=== PATIENT | male | born 1995 | race African-American/Black ===

== ENCOUNTER 2016-12-06 18:06 | Emergency (ER) | payer OTHER ==
[~2016-12-06] VITALS: Ht 175.3 cm; Wt 63.8 kg
[2016-12-06 18:14] VITALS: TEMP 36.9; Ht 175.3 cm; Wt 63.8 kg
[2016-12-06] MEDS ORDERED: KETOROLAC TROMETHAMINE 30 MG/ML VIAL IV STA (18:39)
[2016-12-06] MEDS ORDERED: SODIUM CHLORIDE 0.9% 1000ML 1,000 ML IV ONE (18:39)
[2016-12-06] MEDS ORDERED: ONDANSETRON INJ 2 MG/ML 2 ML VIAL IV STA (18:39)
[2016-12-06] MEDS ORDERED: SODIUM CHLORIDE 0.9% 1000ML 1,000 ML IV STA (18:39)
--- NOTE | 2016-12-06 18:41 | EMERGENCY ROOM VISIT NOTE ---
History Report prepared by Bernardino: Aileen Bingham Under the Supervision of: Dr. David Jamil M.D. First contact with patient: 18:25 Chief Complaint: VOMITING Stated Complaint: VOMITNG,ABD PAIN,TIREDNESS History of Present Illness The patient is a 21 year old male who presents to the Emergency Room with complaints of intermittent vomiting beginning last night. The patient states that he has had 12 episodes of vomiting since last night. He complains of generalized abdominal pain and tiredness. He denies any bloody vomit, black stool, bloody stool, diarrhea, fever, sore throat, headache, chest pain, cough, and shortness of breath. The patient states that his last bowel movement was this morning and was normal. He notes that he was hospitalized for malaria last year but has not had any recent travel in the last year. The patient states that he drank a lot of alcohol last night and is feeling hungover today but has never vomited this many times before. Source of History: patient Onset: last night Position: other (global) Symptom Intensity: 12 episodes Quality: other (vomiting) Timing: intermittent Associated Symptoms: + nausea, + vomiting, + abdominal pain, No fevers, No headache, No sorethroat, No cough, No chest pain, No SOB, No diarrhea Note: He denies any bloody vomit, black stool, bloody stool. Review of Systems See HPI for pertinent positives & negatives. A total of 10 systems reviewed and were otherwise negative. Past Medical & Surgical Medical Problems: (1) Malaria Old medical records were reviewed. Nurse's notes were reviewed and I agree with. Family History No pertinent family history stated. Social History Smoking Status: Never Smoker Marital Status: single Housing Status: lives with roommate Occupation Status: [employer] student Current/Historical Medications No Active Prescriptions or Reported Meds Allergies Coded Allergies: No Known Allergies (Unverified , 12/06/16) Physical Exam Vital Signs Date Time Temp Pulse Resp B/P (MAP) Pulse Ox O2 Delivery O2 Flow Rate FiO2 12/06/16 21:21 84 20 126/74 98 12/06/16 19:44 90 20 122/64 98 Room Air 12/06/16 18:14 36.9 74 16 127/65 98 Room Air Physical Exam General: Well developed well nourished non-ill appearing young male in no acute distress, breathing comfortably on room air. Normal speech HEENT: Normal cephalic atraumatic. Pupils are equal round and reactive to light. Extraocular movements are intact. Oropharynx is pink with moist mucous membranes. No swelling of the mouth lips or tongue. Neck: Supple with a midline trachea. No meningeal signs or stiffness, no JVD or bruits. No Stridor. Chest: Clear to auscultation bilaterally. No wheezes or rhonchi. No increased work of breathing. Heart: regular rate and rhythm. Abdomen: Soft nontender, nondistended without rebound guarding or rigidity. Extremities: No cyanosis clubbing or edema. No calf tenderness or assymetry Spine/Back. Non tender to palpation. No CVA tenderness Skin: Good turgor without rashes. Neurologic exam: Cranial nerves two through 12 are intact. Motor and sensation are intact and symmetrical throughout. Medical Decision & Procedures Laboratory Results 12/06/16 19:15 Red Blood Count 5.00, Mean Corpuscular Volume 92.8, Mean Corpuscular Hemoglobin 32.2, Mean Corpuscular Hemoglobin Concent 34.7, Mean Platelet Volume 9.6, Neutrophils (%) (Auto) 86.7, Lymphocytes (%) (Auto) 6.9, Monocytes (%) (Auto) 6.1, Eosinophils (%) (Auto) 0.0, Basophils (%) (Auto) 0.1, Neutrophils # (Auto) 8.38, Lymphocytes # (Auto) 0.67, Monocytes # (Auto) 0.59, Eosinophils # (Auto) 0.00, Basophils # (Auto) 0.01 12/06/16 19:15 Test 12/06/16 19:15 White Blood Count 9.67 K/uL (4.8-10.8) Red Blood Count 5.00 M/uL (4.7-6.1) Hemoglobin 16.1 g/dL (14.0-18.0) Hematocrit 46.4 % (42-52) Mean Corpuscular Volume 92.8 fL (80-100) Mean Corpuscular Hemoglobin 32.2 pg (25-34) Mean Corpuscular Hemoglobin Concent 34.7 g/dl (32-36) Platelet Count 202 K/uL (130-400) Mean Platelet Volume 9.6 fL (7.4-10.4) Neutrophils (%) (Auto) 86.7 % Lymphocytes (%) (Auto) 6.9 % Monocytes (%) (Auto) 6.1 % Eosinophils (%) (Auto) 0.0 % Basophils (%) (Auto) 0.1 % Neutrophils # (Auto) 8.38 K/uL (1.4-6.5) Lymphocytes # (Auto) 0.67 K/uL (1.2-3.4) Monocytes # (Auto) 0.59 K/uL (0.11-0.59) Eosinophils # (Auto) 0.00 K/uL (0-0.5) Basophils # (Auto) 0.01 K/uL (0-0.2) RDW Standard Deviation 39.3 fL (36.4-46.3) RDW Coefficient of Variation 11.6 % (11.5-14.5) Immature Granulocyte % (Auto) 0.2 % Immature Granulocyte # (Auto) 0.02 K/uL (0.00-0.02) Anion Gap 9.0 mmol/L (3-11) Est Creatinine Clear Calc Drug Dose 88.6 ml/min Estimated GFR () 100.3 Estimated GFR (Non- 86.5 BUN/Creatinine Ratio 14.8 (10-20) Calcium Level 9.6 mg/dl (8.5-10.1) Total Bilirubin 0.7 mg/dl (0.2-1) Direct Bilirubin 0.2 mg/dl (0-0.2) Aspartate Amino Transf (AST/SGOT) 30 U/L (15-37) Alanine Aminotransferase (ALT/SGPT) 48 U/L (12-78) Alkaline Phosphatase 84 U/L (45-117) Total Protein 8.4 gm/dl (6.4-8.2) Albumin 4.6 gm/dl (3.4-5.0) Lipase 118 U/L (73-393) Laboratory studies as stated above per my review. Medications Administered Medications (Trade) Dose Ordered Sig/Sudha Route Start Time Stop Time Status Last Admin Dose Admin Sodium Chloride 1,000 ml @ 999 mls/hr Q1H1M STAT IV 12/06/16 18:39 12/06/16 19:39 DC 12/06/16 19:18 999 MLS/HR Sodium Chloride 1,000 ml @ 200 mls/hr Q5H ONCE IV 12/06/16 18:39 12/06/16 21:44 DC 12/06/16 19:18 200 MLS/HR Ondansetron HCl (Zofran Inj) 4 mg NOW STAT IV 12/06/16 18:39 12/06/16 18:40 DC 12/06/16 19:19 4 MG Ketorolac Tromethamine (Toradol Inj) 30 mg NOW STAT IV 12/06/16 18:39 12/06/16 18:40 DC 12/06/16 19:18 30 MG Ondansetron HCl (ZOFRAN ODT 4MG Home Pack) 1 homepack UD ONCE PO 12/06/16 20:45 12/06/16 20:46 DC 12/06/16 21:20 1 HOMEPACK ED Course 1824: Past medical records reviewed. The patient was evaluated in room B6, and a complete history and physical examination were performed. 1838: Toradol Inj 30mg IV, Zofran Inj 4mg IV, Sodium Chloride 1000 ml @ 200 mls/ hr IV, Sodium Chloride 1000 ml @ 999 mls/hr IV. 1952: I reevaluated the patient and he is feeling a lot better. 2044: Ondansetron HCl 1 homepack PO. 2049: Upon reevaluation, the patient is doing well. I discussed the results and treatment plan with the patient. He verbalized agreement of the treatment plan. The patient was discharged home. Medical Decision Differential diagnosis includes dehydration, gastritis, infection, electrolyte or metabolic abnormality. Medication Reconciliation: I attest that I have personally reviewed the patient' s current medication list. Blood pressure Screening: Patient was found to have normal blood pressure on screening and does not require follow-up. This patient comes in as described above. He was placed in room B6. He's had vomiting since last night. He did drink fairly heavily last night. There was no trauma. He has some mild diffuse abdominal pain however on exam, he has no significant tenderness or peritonitis. He is afebrile and looks well. He had no hematemesis or any blood in his stool. IV access established and he was hydrated with a 1 L IV normal saline bolus and 200 mL an hour of IV normal saline. He was given Zofran for nausea 4 mg IV as well as Toradol 30 mg IV for pain management. He was reassessed frequently. He was feeling significantly better and is drinking fluids. He has no acute electrolyte or metabolic abnormality. He has nothing to suggest infection or sepsis or significant anemia. His abdomen is benign. Most likely this is gastritis related to alcohol ingestion. He is feeling better would like to go home I told him to rest and drink plenty of fluids, slowly advance his diet. He was given a home pack of Zofran. Avoid any for further alcohol. Return if any new problems or concerns. He was happy with plan discharge to home. Impression Primary Impression: Vomiting Additional Impression: Gastritis Scribe Attestation The scribe's documentation has been prepared under my direction and personally reviewed by me in its entirety. I confirm that the note above accurately reflects all work, treatment, procedures, and medical decision making performed by me. Departure Information Dispostion Home / Self-Care Prescriptions No Active Prescriptions or Reported Meds Referrals No Doctor, Assigned (PCP) Forms HOME CARE DOCUMENTATION FORM, IMPORTANT VISIT INFORMATION Patient Instructions My [facility] Additional Instructions Rest. Drink plenty of fluids. Mild diet. Do not drink anymore alcohol. Use Zofran 4 mg under the tongue every 6 hours if needed for nausea or vomiting Return to ER if: Increasing pain, worsening of symptoms, not tolerating fluids, fever chills, any new problems concerns. Problem Qualifiers
[2016-12-06 19:27] LABS: BASO % 0.1 %; BASO ABS # 0.01 K/uL (0-0.2); COMPLETE YES; HEMATOCRIT 46.4 % (42-52); IG% 0.2 %; LYMPH % 6.9 %; LYMPH ABS # 0.67 K/uL (1.2-3.4); MEAN CELL VOLUME 92.8 fL (80-100); MEAN CORPUSCULAR HEMOGLOBIN 32.2 pg (25-34); MEAN CORPUSCULAR HGB CONC 34.7 g/dl (32-36); MEAN PLATELET VOLUME 9.6 fL (7.4-10.4); MONO % 6.1 %; NEUT % 86.7 %; PLATELET COUNT 202 K/uL (130-400); WHITE BLOOD COUNT 9.67 K/uL (4.8-10.8)
[2016-12-06 19:45] LABS: BUN/CREATININE RATIO 14.8 (10-20); CALCIUM 9.6 mg/dl (8.5-10.1); CREATININE 1.2 mg/dl (0.60-1.40); POTASSIUM 4.3 mmol/L (3.5-5.1)
[2016-12-06] MEDS ORDERED: ONDANSETRON HOME PACK 4MG OD TAB PO ONE (20:45)
[2016-12-06 21:21] VITALS: BP 126/74; PULSE 84; O2SAT 98
== END 2016-12-06 21:22 | disposition home or self-care (01) ==
LOC: C.EDB 18:07
DX: R11.10 Vomiting, unspecified (principal); K29.70 Gastritis, unspecified, without bleeding; Z86.13 Personal history of malaria